=== PATIENT | female | born 1960 | race Caucasian/White ===

== ENCOUNTER 2016-11-11 08:57 | Emergency (ER) | payer MEDICAID ==
[~2016-11-11] VITALS: Ht 157.5 cm; Wt 59.9 kg
[2016-11-11 11:00] VITALS: BP 113/66
== END 2016-11-11 11:00 | disposition home or self-care (01) ==
LOC: ED 08:57
DX: J20.9 Acute bronchitis, unspecified (principal); F17.210 Nicotine dependence, cigarettes, uncomplicated; Z90.89 Acquired absence of other organs
CPT/HCPCS: J1885; J7613; J7644; Q0092

== ENCOUNTER 2016-12-08 09:05 | Emergency (ER) | payer MEDICAID ==
[2016-12-08 09:33] LABS: BASOPHIL % 0.4 % (0-2); PLATELET COUNT 274 x10^3mcL (130-400); RED CELL DISTRIBUTION WIDTH 13.4 % (11.5-14.5)
[2016-12-08 09:39] LABS: CALCIUM 10.2 mg/dL (8.5-10.1); CARBON DIOXIDE 29.4 mmol/L (21-32); CHLORIDE SERUM 104 mmol/L (98-107); CREATININE SERUM 0.8 mg/dL (0.6-1.0); GFR1 > 60 mL/min; GLUCOSE SERUM 128 mg/dL (74-106); POTASSIUM SERUM 3.7 mmol/L (3.5-5.1); SODIUM SERUM 141 mmol/L (136-145)
[2016-12-08 09:44] LABS: ALBUMIN 4.2 g/dL (3.4-5.0); ALKALINE PHOSPHATASE 104 U/L (46-116); ALT/SGPT 37 U/L (14-59); AMYLASE 56 U/L (25-115); AST/SGOT 28 U/L (15-37); BILIRUBIN TOTAL 0.38 mg/dL (0.20-1.00); LIPASE 166 IU/L (73-393); TOTAL PROTEIN, SERUM 7.9 g/dL (6.4-8.2)
[2016-12-08 09:51] LABS: UA SPECIFIC GRAVITY 1.015 (1.005-1.035); microscopic required? YES; urine erythrocyte NEGATIVE (NEGATIVE)
[2016-12-08 12:19] VITALS: BP 117/89
== END 2016-12-08 12:19 | disposition home or self-care (01) ==
LOC: ED 09:05
PROVIDERS: Specialist
DX: R10.13 Epigastric pain (principal); Z90.89 Acquired absence of other organs
CPT/HCPCS: 83880; J1885; J2405; J3010; J3490; J7030; Q0092

== ENCOUNTER 2019-02-06 13:24 | Emergency (ER) | payer OTHER ==
[~2019-02-06] VITALS: Ht 157.5 cm; Wt 67.1 kg
[2019-02-06 13:29] VITALS: BP 96/56; Ht 157.5 cm; Wt 67.1 kg
== END 2019-02-06 15:27 | disposition home or self-care (01) ==
LOC: ED 13:24
DX: L03.115 Cellulitis of right lower limb (principal); G89.29 Other chronic pain; M25.511 Pain in right shoulder
CPT/HCPCS: Q0092

== ENCOUNTER 2019-03-15 15:35 | Inpatient (IN) | payer OTHER ==
[~2019-03-15] VITALS: Ht 157.5 cm; Wt 69.1 kg
--- NOTE | 2019-03-15 16:10 | NUR ---
PT PRESENTS FOR EVAL OF COUGH AND SOB. PT NOTED TO BE A SMOKER, C/O BODY ACHES AND HEAD PAIN WITH BACK PAIN AND ONGOING COUGH X 7-10 DAYS;PREP FOR EXAM EVAL
--- NOTE | 2019-03-15 16:40 | NUR ---
PT SEEN BY PROVIDER, ORDERS REC'D
--- NOTE | 2019-03-15 17:15 | NUR ---
PRELIMINARY RESULTS REC'D,PT TO BE ADMITTED
[2019-03-15 17:52] LABS: BASOPHIL % 0.3 % (0-2); PLATELET COUNT 234 x10^3mcL (130-400); RED CELL DISTRIBUTION WIDTH 12.9 % (11.5-14.5)
--- NOTE | 2019-03-15 17:55 | NUR ---
IV FLUIDS INITIATED, ABG COMPLETED, ABG ALSO INITIATED
[2019-03-15 18:29] LABS: CALCIUM 9.1 mg/dL (8.5-10.1); CARBON DIOXIDE 27.2 mmol/L (21-32); CHLORIDE SERUM 104 mmol/L (98-107); CREATININE SERUM 0.8 mg/dL (0.6-1.0); GFR1 > 60 mL/min; GLUCOSE SERUM 110 mg/dL (74-106); POTASSIUM SERUM 3.8 mmol/L (3.5-5.1); SODIUM SERUM 139 mmol/L (136-145)
--- NOTE | 2019-03-15 18:32 | NUR ---
URINE STRAIGHT CATH COMPLETE, POC DONE, SPECIMEN SENT TO LAB
[2019-03-15 18:34] LABS: ALBUMIN 3.7 g/dL (3.4-5.0); ALKALINE PHOSPHATASE 107 U/L (46-116); ALT/SGPT 49 U/L (14-59); AST/SGOT 19 U/L (15-37); BILIRUBIN TOTAL 0.2 mg/dL (0.20-1.00); T4(THYROXINE) 5.2 ug/dL (4.7-13.3); TOTAL PROTEIN, SERUM 7.2 g/dL (6.4-8.2)
[2019-03-15 18:42] LABS: microscopic required? NO
--- NOTE | 2019-03-15 18:54 | NUR ---
PT RESTING WELL, REMAINS WITH DRY NON PRODUCTIVE COUGH; REMAINS WAITING ON ROOM ASSIGNMENT
--- NOTE | 2019-03-15 19:10 | NUR ---
RT CALLED TO INFORM THEM THAT THERE IS A BREATHING TREATMENT ORDERED.
[2019-03-15 19:21] LABS: UA SPECIFIC GRAVITY 1.015 (1.005-1.035); urine erythrocyte NEGATIVE (NEGATIVE)
--- NOTE | 2019-03-15 19:41 | NUR ---
RT CALLED AGIAN TO INFORM THEM THAT THERE IS STILL A BREATHING TREATMENT PENDING. RT REPORTS THEY WILL COME TO THE ER TO ADMINSTER BREATHING TREATMENT.
--- NOTE | 2019-03-15 19:58 | NUR ---
RECEIVED REPORT FROM ER NURSE. AWAITING FOR PTS ARRIVAL.
--- NOTE | 2019-03-15 19:58 | NUR ---
REPORT GIVEN TO KARY DON TO ASSUME CARE OF PT.
--- NOTE | 2019-03-15 19:59 | NUR ---
PT COUSIN TAHIR CALLED AT [phone] IN ATTEMPTS TO OBTAIN PTS AT HOME MEDICATIONS LIST. NO ANSWER FROM PTS COUSIN.
--- NOTE | 2019-03-15 20:02 | NUR ---
REPORT GIVEN TO KARY DON TO ASSUME CARE OF PT.
--- NOTE | 2019-03-15 20:05 | NUR ---
RT AT BEDSIDE TO ADMINISTER BREATHING TREATMENT.
--- NOTE | 2019-03-15 20:17 | NUR ---
PT PRESENTS TO ER TODAY WITH C/O L FLANK PAIN THAT STARTED APPROX 5 DAYS AGO. PT STATES HE WAS SEEN HERE 5 DAYS AGO AND WAS TOLD HE HAS A KIDNEY STONE. PT REPORTS HE WAS PRESCRIBED [facility] AND RECENTLY RAN OUT. PT NOW COMPLAINING OF 8/10 PAIN TO HIS L FLANK. PT DENIES ANY N/V/D. PT DENIES ANY HEMATURIA. PT IS A/O X4. RESP ARE E/U. NO ACUTE DISTRESS NOTED.
--- NOTE | 2019-03-15 20:28 | NUR ---
RECEIVED PT FROM ED [employer]IA [employer],CAME IN DUE TO SOB AND COUGH X1 WEEK. AAOX4. DENIES HEADACHE/DIZZINESS. PT STATED THAT EVERY TIME SHE MOVES HER HEAD, IT FEELS LIKE SOME FLUIDS ARE MOVING. NO ARM DRIFT/FACIAL DROOP. HAND WHIPPER EQUAL. C/O SOB WORSE ON EXERTION, LUNG SOUNDS CTA. O2 SAT=97%, RA. STATED THAT SHE HAS PRODUCTIVE COUGH, ABLE TO EXPECTORATE WHITE PHLEGM. DENIES CHEST PAIN/PRESSURE, GH=206. C/O CONSTIPATION. DENIES ABDOMINAL CONNELLY/NAUSEA/VOMITING. VOIDS. IV SITE PATENT AND INTACT. PT STATED THAT SHE HAS BUMPS ON HER KNUCKLES AND RIGHT ARM. ABLE TO MOVE ALL EXTREMITIES. AMBULATORY. IV SITE PATENT AND INTACT. SIDE RAILS UPX2. CALL LIGHT ON REACH, ENDORSED TO PRIMARY NURSE GARRICK FOR CONTINUITY OF CARE
--- NOTE | 2019-03-15 20:35 | NUR ---
RECEIVED PT FROM ESTRELLITA DON. PT IS RESTING COMFORTABLY IN BED. REQUESTING A SANDWICH, PROVIDED. BREATHING IS EVEN AND UNLABORED ON RA. DENIES ANY PAIN AT THIS TIME. BED IN LOWEST POSITION. CALL LIGHT WITHIN REACH. WILL CONTINUE TO MONITOR.
[2019-03-15 20:44] VITALS: BP 120/59
[2019-03-15 20:46] VITALS: Ht 157.5 cm; Wt 69.1 kg
[2019-03-15 21:20] LABS: CHOLESTEROL/HDL RATIO 3.1
[2019-03-15 21:23] LABS: AMPHETAMINE QUAL UR POSITIVE (See below)
[2019-03-15] MEDS ORDERED: TRAMADOL HCL50 MG PO (22:11)
[2019-03-15] MEDS ORDERED: BACLOFEN10 MG PO (22:12)
--- NOTE | 2019-03-15 22:39 | NUR ---
ROUTINE MEDICATIONS WERE GIVEN AND TOLERATED WELL. NO ACUTE DISTRESS NOTED. BREATHING IS EVEN AND UNLABORED ON RA. NO SIGNS OF RESP DISTRESS. BED IN LOWEST POSITION. CALL LIGHT WITHIN REACH. WILL CONTINUE TO MONITOR.
[2019-03-16 00:21] VITALS: BP 120/59
--- NOTE | 2019-03-16 00:29 | NUR ---
SPOKE TO COUSIN, [place] JOHNSON, INFORMED HER ABOUT HER COUSINS ADMISSION. STATES, "OKAY".
--- NOTE | 2019-03-16 00:45 | NUR ---
PT IS RESTING COMFORTABLY WITH EYES CLOSED, BUT EASILY AROUSABLE WHEN SPOKEN TO. BREATHING IS EVEN AND UNLABORED ON RA. NO SIGNS OF RESP DISTRESS. BED IN LOWEST POSITION. CALL LIGHT WITHIN REACH. WILL CONTINUE TO MONITOR.
--- NOTE | 2019-03-16 03:01 | NUR ---
PT IS RESTING COMFORTABLY IN BED WITH EYES CLOSED, BUT EASILY AROUSABLE WHEN SPOKEN TO. BREATHING IS EVEN AND UNLABORED ON RA. NO SIGNS OF RESP DISTRESS. BED IN LOWEST POSITION. CALL LIGHT WITHIN REACH. WILL CONTINUE TO MONITOR.
[2019-03-16 05:48] VITALS: BP 99/57
[2019-03-16 06:17] LABS: PLATELET COUNT 242 x10^3mcL (130-400); RED CELL DISTRIBUTION WIDTH 13.4 % (11.5-14.5)
--- NOTE | 2019-03-16 06:59 | NUR ---
PT SLEPT IN LONG INTERVALS THROUGHOUT THE NIGHT AND COMPLIED WITH NURSING CARE WITH NO ACUTE EVENTS OCCURRING DURING THE SHIFT. COMFORT AND SAFETY MEASURES MAINTAINED. ALL NEEDS ASSESSED AND ATTENDED TO. WILL CONTINUE TO MONITOR AND ENDORSE CARE TO DAY SHIFT NURSE.
[2019-03-16 07:15] LABS: BASOPHIL % 0 % (0-2)
--- NOTE | 2019-03-16 07:30 | NUR ---
RECEIVED PT FROM [employer] FIELD SUPERVISOR RN. Miky/LYLA. MED SURG. DENIES ANY CHEST PAIN/PRESSURE. RESPIRATIONS EQUAL AND UNLABORED ON RA. DENIES SOB. PT STATES BREATHING HAS IMPROVED SINCE ADMISSION. PT DENIES ANY COUGH AT THIS TIME. PT DENIES ANY PAIN AT THIS TIME. PT ASKING WHEN WILL BE ABLE TO DISCHARGE HOME. PT EXPLAINED TO PT WILL AWAIT FOR DR. VELASQUEZ TO SPEAK WITH HER REGARDING PLAN OF CARE. PT VERBALIZED UNDERSTANDING. WILL CONTINUE TO MONITOR. CALL LIGHT IN REACH. BED IN LOWEST POSITION.
[2019-03-16 07:55] LABS: CARBON DIOXIDE 22.3 mmol/L (21-32); CHLORIDE SERUM 107 mmol/L (98-107); CREATININE SERUM 0.7 mg/dL (0.6-1.0); GFR1 > 60 mL/min; GLUCOSE SERUM 143 mg/dL (74-106); MAGNESIUM 2.3 mg/dL (1.8-2.4); PHOSPHOROUS 3.1 mg/dL (2.5-4.9); POTASSIUM SERUM 4.2 mmol/L (3.5-5.1); SODIUM SERUM 142 mmol/L (136-145)
[2019-03-16 08:25] VITALS: BP 115/75
--- NOTE | 2019-03-16 10:04 | NUR ---
PT SITTING IN BED. NO ACUTE DISTRESS NOTED. AM MEDS GIVEN. TOLERATED WELL. ALL NEEDS MET AT THIS TIME. WILL CONTINUE TO MONITOR. CALL LIGHT IN REACH. BED IN LOWEST POSITION.
--- NOTE | 2019-03-16 10:34 | NUR ---
PT REQUESTING TO SHOWER. PAGED DR. VELASQUEZ FOR SHOWER ORDER, AWAITING CALL BACK.
--- NOTE | 2019-03-16 11:05 | NUR ---
SPOKE WITH DR. VELASQUEZ, PT IS OKAY TO SHOWER, PER DR. VELASQUEZ WILL PUT IN ORDER.
[2019-03-16 12:33] VITALS: BP 103/61
--- NOTE | 2019-03-16 14:32 | NUR ---
PT SITTING IN BED. PT C/O NAUSEA AND RETCHING. MEDICATED WITH ZOFRAN IVP PER EMAR. PT STATES SHE HAS HAD AN ON AND OFF PROBLEM WITH NAUSEA FOR WHICH SHE TAKES NAUSEA PILLS. WILL CONTINUE TO MONITOR. CALL LIGHT IN REACH. BED IN LOWEST POSITION.
--- NOTE | 2019-03-16 15:39 | NUR ---
PT AND FAMILY AT BEDSIDE. PT AND FAMILY REQUESTING TO SPEAK WITH THE DOCTOR. PAGED DR. VELASQUEZ. DR. VELASQUEZ RESPONED, PER DR. VELASQUEZ WILL SPEAK WITH PT AND FAMILY.
[2019-03-16 16:53] VITALS: BP 116/67
--- NOTE | 2019-03-16 19:15 | NUR ---
RECEIVED REPORT FROM DAY SHIFT NURSE, TERESA DON. PT IS AAOX4. SPEECH IS CLEAR. DENIES PLUMMER AT THIS TIME. EMMONAK. M/S PT. DENIES CHEST PAIN/CHEST PRESSURE. PULSES PALPABLE. NO EDEMA NOTED. BREATHING IS EVEN AND UNLABORED ON RA. LUNG SOUNDS CTA. DENIES SOB. ABD IS SOFT AND NONDISTENDED. BS ACTIVE. DENIES N/V/D AT THIS TIME. VOIDS FREELY. DENIES DYSURIA. AMBULATORY. SKIN INTACT. C/O 5/10 ABD/BACK PAIN. WILL MEDICATE WITH TYLENOL PER MAR ORDER. IV TO RFA DRY, INTACT, AND PATENT, SL. BED IN LOWEST POSITION. CALL LIGHT WITHIN REACH. WILL CONTINUE TO MONITOR.
[2019-03-16 20:22] VITALS: BP 103/62
--- NOTE | 2019-03-16 21:35 | NUR ---
ROUTINE MEDICATIONS WERE GIVEN AND TOLERATED WELL. NO ACUTE DISTRESS NOTED. BREATHING IS EVEN AND UNLABORED ON RA. NO SIGNS OF RESP DISTRESS. TYLENOL ADMINISTERED FOR 5/10 SHARP BACK PAIN. WILL REASSESS AND CHECK EFFECTIVENESS. BED IN LOWEST POSITION. CALL LIGHT WITHIN REACH. WILL CONTINUE TO MONITOR.
--- NOTE | 2019-03-17 01:27 | NUR ---
PT IS RESTING COMFORTABLY IN BED WITH EYES CLOSED, EASILY AROUSABLE WHEN SPOKEN TO. BREATHING IS EVEN AND UNLABORED ON RA. NO SIGNS OF RESP DISTRESS. BED IN LOWEST POSITION. CALL LIGHT WITHIN REACH. WILL CONTINUE TO MONITOR.
--- NOTE | 2019-03-17 04:02 | NUR ---
PT RESTING COMFORTABLY, ASLEEP. NO ACUTE CHANGES. WILL CONTINUE TO MONITOR.
[2019-03-17 05:43] VITALS: BP 101/71
[2019-03-17 06:54] LABS: BASOPHIL % 0.4 % (0-2); PLATELET COUNT 252 x10^3mcL (130-400); RED CELL DISTRIBUTION WIDTH 13.2 % (11.5-14.5)
--- NOTE | 2019-03-17 07:00 | NUR ---
RECEIVED REPORT FROM [facility] NURSE PATIENT LYING IN BED WITH EYES CLOSED. PT A&O X4 DENIES ANY PAIN OR SOB AT THIS TIME. LUNGS CTA BILAT, CHEST RISE EQUAL AND UNLABORED . IV ON FRA PATENT AND INTACT. ALL QUESTIONS AND CONCERNS ADDRESSED AT THIS TIME. BED IN LOWEST POSITION CALL LIGHT WITHIN REACH. WILL CONTINUE TO MONITOR.
--- NOTE | 2019-03-17 08:09 | NUR ---
PATIENT LEFT WITHOUT ANY NOTIFICATION CLOTHES AND IV FOUND ON FLOOR OF BATHROOM WITH CATHETER INTACT. WILL NOTIFY AUGUSTINA PATEL. CHARGE NURSE QUIANA AND SECURITY NOTIFIED.
[2019-03-17 08:23] LABS: CALCIUM 8.9 mg/dL (8.5-10.1); CARBON DIOXIDE 26.4 mmol/L (21-32); CHLORIDE SERUM 107 mmol/L (98-107); CREATININE SERUM 0.8 mg/dL (0.6-1.0); GFR1 > 60 mL/min; GLUCOSE SERUM 104 mg/dL (74-106); POTASSIUM SERUM 4.2 mmol/L (3.5-5.1); SODIUM SERUM 141 mmol/L (136-145)
== END 2019-03-17 08:10 | disposition left against medical advice (07) | DRG 143 ==
LOC: ED 15:35 → MU 19:28
PROVIDERS: Emergency Medicine; ADMIT Student in an Organized Health Care Education/Training Program
DX: J90 Pleural effusion, not elsewhere classified (principal); F17.210 Nicotine dependence, cigarettes, uncomplicated; G89.29 Other chronic pain; F15.10 Other stimulant abuse, uncomplicated; Z53.29 Procedure and treatment not carried out because of patient's decision for other reasons; Z90.49 Acquired absence of other specified parts of digestive tract; Z83.3 Family history of diabetes mellitus
CPT/HCPCS: 36600; 83880; 87804; 94150; G0378; J0456; J1956; J2405; J2920; J2930; J7030; J7050; J7620; Q0092

== ENCOUNTER 2019-12-08 14:08 | Emergency (ER) | payer OTHER ==
[~2019-12-08] VITALS: Ht 162.6 cm; Wt 75.3 kg
[~2019-12-08 14:08] MED LIST: BACLOFEN10 MG PO; TRAMADOL HCL50 MG PO
[2019-12-08 14:19] VITALS: Ht 162.6 cm; Wt 75.3 kg
[2019-12-08 15:35] LABS: microscopic required? NO
[2019-12-08 15:47] LABS: UA SPECIFIC GRAVITY >=1.030 (1.005-1.035); urine erythrocyte NEGATIVE (NEGATIVE)
[2019-12-08 16:06] LABS: AMPHETAMINE QUAL UR POSITIVE (See below)
[2019-12-08 16:38] LABS: BASOPHIL % 0.2 % (0-2); PLATELET COUNT 239 x10^3mcL (130-400)
[2019-12-08 16:51] LABS: CALCIUM 8.2 mg/dL (8.5-10.1); CARBON DIOXIDE 27.1 mmol/L (21-32); CHLORIDE SERUM 107 mmol/L (98-107); CREATININE SERUM 0.8 mg/dL (0.6-1.0); GFR1 > 60 mL/min; GLUCOSE SERUM 105 mg/dL (74-106); POTASSIUM SERUM 3.9 mmol/L (3.5-5.1); SODIUM SERUM 142 mmol/L (136-145)
[2019-12-08 17:25] LABS: ALBUMIN 3.6 g/dL (3.4-5.0); ALT/SGPT 44 U/L (14-59); LIPASE 167 IU/L (73-393); MAGNESIUM 2.4 mg/dL (1.8-2.4)
[2019-12-08 17:39] LABS: ALKALINE PHOSPHATASE 110 U/L (46-116); AST/SGOT 22 U/L (15-37); BILIRUBIN TOTAL 0.3 mg/dL (0.20-1.00); CHOLESTEROL 165 mg/dL (<200); HDL CHOLESTEROL 46 mg/dL (40-60); TOTAL PROTEIN, SERUM 6.6 g/dL (6.4-8.2)
[2019-12-08 17:40] LABS: T4(THYROXINE) 4.2 ug/dL (4.7-13.3)
[2019-12-08 18:00] VITALS: BP 130/73
== END 2019-12-08 19:18 | disposition home or self-care (01) ==
LOC: ED 14:08
PROVIDERS: Emergency Medicine
DX: R22.43 Localized swelling, mass and lump, lower limb, bilateral (principal); E03.9 Hypothyroidism, unspecified; F15.20 Other stimulant dependence, uncomplicated; F17.210 Nicotine dependence, cigarettes, uncomplicated; Z71.6 Tobacco abuse counseling; Z90.89 Acquired absence of other organs
CPT/HCPCS: 82962; 83880; 99406; G0480; Q0092